=== PATIENT | male | born 1965 | race Caucasian/White ===

== ENCOUNTER 2019-01-06 06:30 | Observation (INO) | payer OTHER ==
--- NOTE | 2018-12-30 10:02 | HP ---
HISTORY AND PHYSICAL: DATE OF SURGERY: 01/06/19 DATE OF OFFICE VISIT: 12/29/18 SURGEON: Emi Fermin MD.* (DICTATED BY KATYA PEREZ) PROCEDURE: Left total knee arthroplasty. CHIEF COMPLAINT: Left knee pain. HISTORY OF PRESENT ILLNESS: Mr. Pace is a 53-year-old gentleman with end- stage osteoarthritis of the left knee. He failed conservative treatment and elected to proceed with with a total knee arthroplasty. PAST MEDICAL HISTORY: Sleep apnea, aortic aneurysm, and PVCs. PAST SURGICAL HISTORY: Left knee scope, cholecystectomy, 2 surgeries for an undescended testicle, tonsillectomy, nasal surgery, left thumb surgery, and right eye surgery. CURRENT MEDICATIONS: 1. Toprol 25 mg a day. 2. Multivitamin. ALLERGIES: No known drug allergies. FAMILY HISTORY: Diabetes. SOCIAL HISTORY: He is a 53-year-old gentleman, lives with his . He does not smoke or use drugs. Uses occasional alcohol. REVIEW OF SYSTEMS: A complete 14-point review of systems was reviewed with the patient, was all negative or noncontributory. He denies history of DVT, PE, hepatitis, HIV, or anesthesia problems. PHYSICAL EXAMINATION GENERAL: He is well developed, well nourished, in no acute distress. VITAL SIGNS: He stands 6 feet 1 inch tall, weighs 202 pounds. Blood pressure 120/78, heart rate 64. HEENT: Normocephalic, atraumatic. NECK: Supple. No palpable lymph nodes. PULMONARY: The lungs are clear to auscultation bilaterally. CARDIO: Regular rate and rhythm. Strong S1, S2. ABDOMEN: Soft, nontender, nondistended. NEUROLOGICAL: He is alert and oriented x3. MUSCULOSKELETAL: Left lower extremity: The skin is intact. There are no open wounds or abrasions. Range of motion is 10 to 120 degrees of flexion. He has a 2+ dorsalis pedis pulse. Intact sensation. His lower extremity muscle group strengths are intact at 5/5. ASSESSMENT AND PLAN: Mr. Pace is a 53-year-old gentleman with severe end- stage osteoarthritis of the left knee. He has failed conservative treatment and elected to proceed with a left total knee arthroplasty. The surgery is scheduled for 01/06/[address] Fermin discussed the risks and benefits of the surgery at today's visit and all of his questions were answered. He will follow up with Dr. Fermin 2 weeks after the surgery. KATYA PEREZ [id number]/CPS #: [id number] MTDD
[~2019-01-06 06:30] MED LIST: Acetaminophen TAB* 325 MG PO ONE; Buffered Lidocaine 1% SYRIN* 1 ML/SYRINGE INTRADERM ONE; Dexamethasone IV* 4 MG/ML 1 ML (4 MG) IV SLOW PU ONE; Famotidine IV* 10 MG/ML 2 ML (20 mg) IV ONE; Gabapentin CAP(*) 300 MG PO ONE; Lactated Ringers 1000 ML Bag* 1,000 ML IV SCH; celeCOXIB CAP* 200 MG PO ONE
[2019-01-06] MEDS ORDERED: Tranexamic Acid 1,000 MG in NS 0.9% 50 ML IV ONE (07:00)
[2019-01-06] MEDS ORDERED: fentaNYL* 50 MCG/ML 2 ML VIAL (100 MCG VIAL) ONE (07:49)
[2019-01-06] MEDS ORDERED: Midazolam* 1 MG/ML 2 ML VIAL (2 MG) ONE (07:49)
[2019-01-06] MEDS ORDERED: celeCOXIB CAP* 100 MG ONE (07:57)
[2019-01-06] MEDS ORDERED: Dexamethasone IV* 4 MG/ML 1 ML (4 MG) ONE (07:57)
[2019-01-06] MEDS ORDERED: Gabapentin CAP(*) 300 MG ONE (07:57)
[2019-01-06] MEDS ORDERED: Famotidine IV* 10 MG/ML 2 ML (20 mg) ONE (07:58)
[2019-01-06] MEDS ORDERED: Buffered Lidocaine 1% SYRIN* 1 ML/SYRINGE INTRADERM ONE (07:58)
[2019-01-06] MEDS ORDERED: Acetaminophen TAB* 325 MG ONE (07:58)
[2019-01-06] MEDS ORDERED: ceFAZolin 2 GM PREMIX in ORs 2 GM/50 ML BAG IVPB ONE (07:59)
[2019-01-06] MEDS ORDERED: Propofol* 10 MG/ML 20 ML BTL ONE ×3 (08:01→11:59)
[2019-01-06] MEDS ORDERED: Lidocaine 1%* 5 ML VIAL ONE ×2 (08:57→09:05)
[2019-01-06] MEDS ORDERED: ROPIVACAINE 5 MG/ML 30 ML BTL (0.5%) ONE (08:57)
[2019-01-06] MEDS ORDERED: fentaNYL* 50 MCG/ML 2 ML VIAL (100 MCG VIAL) IV PRN (08:58)
[2019-01-06] MEDS ORDERED: oxyCODONE/Acetamin 5/325 MG* TAB PO PRN ×2 (08:58→12:46)
[2019-01-06] MEDS ORDERED: Acetaminophen IV 1GM/100ML * 1,000 MG/100 ML VIAL IVPB ONE (08:58)
[2019-01-06] MEDS ORDERED: Ondansetron INJ* 2 MG/ML VIAL IV PRN (08:58)
[2019-01-06] MEDS ORDERED: Ketorolac INJ* 30 MG/ML 1 ML VIAL IV PRN (08:58)
[2019-01-06] MEDS ORDERED: Naloxone* 0.4 MG/ML 1 ML VIAL IV PRN (08:58)
[2019-01-06] MEDS ORDERED: HYDROmorphone INJ1* 1 MG/ML SYRINGE IV PRN (08:58)
[2019-01-06] MEDS ORDERED: Bupivacaine 0.5%* 50 ML VIAL ONE (09:24)
[2019-01-06] MEDS ORDERED: KETAMINE HCL* 50 MG/ML 10 ML VIAL ONE (09:33)
[2019-01-06] MEDS ORDERED: Bupivacaine-MPF SPINAL* 7.5 MG/ML - 2ML AMP ONE (09:52)
[2019-01-06] MEDS ORDERED: Lidocaine 2% PF * 5 ML VIAL ONE (09:52)
[2019-01-06] MEDS ORDERED: Ondansetron TAB* 4 MG PO PRN (12:46)
[2019-01-06] MEDS ORDERED: Magnesium Hydroxide LIQ* 30 ML UDC PO PRN (12:46)
[2019-01-06] MEDS ORDERED: traMADol TAB* 50 MG PO PRN (12:46)
[2019-01-06] MEDS ORDERED: Polyethylene Glycol 3350* 17 GM PACKET PO PRN (12:46)
[2019-01-06] MEDS ORDERED: diPHENhydraMINE IV* 50 MG/ML 1 ml VIAL (BENADRYL) IV PRN (12:46)
[2019-01-06] MEDS ORDERED: Bisacodyl SUPP* 10 MG SUPP PR PRN (12:46)
[2019-01-06] MEDS ORDERED: Morphine INJ* 2 MG/ML 1 ML SYRINGE (TWO MG - NEW SYRINGE VERSION) IV PRN (12:46)
[2019-01-06] MEDS ORDERED: Cyclobenzaprine TAB* 10 MG PO PRN (12:46)
--- NOTE | 2019-01-06 13:28 | PN ---
Progress Note - Progress Note Date of Service: 01/06/19 Note: in recovery, pain well controlled; able to dorsi flex/plantar flex, 2+ DP pulse and intact sensation; dressing c/d/i
[2019-01-06] MEDS: Lactated Ringers 1000 ML Bag* 1,000 ML IV SCH (14:26)
--- NOTE | 2019-01-06 15:24 | CONS ---
CC: Dr. Tirso Morin; Dr. Brigitte Garcia * CONSULTATION REPORT: DATE OF CONSULT: 01/06/19 PRIMARY CARE PROVIDER: Dr. Tirso Morin. MARINE STRUCTURAL WELDER: Dr. Brigitte Garcia. REQUESTING PHYSICIAN IN CONSULT: Dr. Emi Fermin. ATTENDING PHYSICIAN: Dr. Olivier Rodrigez (dictated by Bev Whitley NP). REASON FOR CONSULT: Co-medical management. HISTORY OF PRESENT ILLNESS: I will refer you to the history and physical by KATYA Parra, for complete details, but in short, Mr. Pace is a 53- year-old male with past medical history of aortic aneurysm and PVCs, who presents to [facility] today for an elective left total knee arthroplasty. The patient reports multiple surgeries on the left knee in the past after an injury. He did have a meniscus repair at one point. Ultimately, the pain was severe enough and he failed conservative treatment and elected to proceed with a total knee arthroplasty. The patient has a known history of frequent PVCs. He has had this for a number of years. He cannot feel his PVCs and they were reportedly incidentally found on a Holter monitor. He follows with Dr. Garcia and takes metoprolol, which appears to control his PVCs well. He additionally has a history of an aortic aneurysm, which was also incidentally found a number of years ago. At least 3 years ago, the patient was referred to a local company hazmat driver in [place] for further evaluation of his aortic aneurysm and the doctor at that point had no concerns as the aneurysm was quite small. The patient again does follow with Dr. Garcia and has yearly echocardiograms to evaluate the size of this aneurysm, though it does not appear to have changed in size. On my exam, the patient denies any pain. He reports feeling well. His is at the bedside and they offer no complaints. PAST MEDICAL HISTORY: 1. Aortic aneurysm. 2. Frequent PVCs. 3. Sleep apnea. PAST SURGICAL HISTORY: 1. Left knee arthroscopy. 2. Cholecystectomy. 3. Tonsillectomy. 4. Surgery for an undescended testicle x2. 5. Nasal surgery. 6. Left thumb surgery. 7. Right eye surgery. HOME MEDICATIONS: 1. Ibuprofen 600 to 800 mg p.o. once daily p.r.n. 2. Metoprolol succinate 25 mg p.o. at bedtime. 3. Multivitamin 1 tab p.o. daily. ALLERGIES: No known drug allergies. FAMILY HISTORY: The patient has a family history of diabetes and thyroid disease. SOCIAL HISTORY: The patient denies any tobacco or recreational drug use. He reports occasional alcohol. He lives at home with his , Meli, who will be his surrogate decision maker in the event he is unable to make his own decisions. REVIEW OF SYSTEMS: An 11-point review of systems was performed and all the pertinent positive and negative findings are in the HPI. All other systems are negative. PHYSICAL EXAM: Mr. Pace is a well-developed, well-nourished white male, sitting in bed, in no acute distress. He appears his stated age. Vital Signs: Temp 97.3, heart rate 50, respiratory rate 15, oxygen saturation 99% on room air , blood pressure 114/82. HEENT: Head is atraumatic, normocephalic. Visual maynard are grossly intact. Oral mucous membranes moist and without lesions. Neck: Full range of motion. Trachea at midline. Respiratory: Symmetrical chest expansion. No chest wall deformities. Lungs: Clear to auscultation throughout. Cardiovascular: Regular rate, bradycardic. S1, S2 present. No murmurs, rubs, or gallops. Extremities: Skin warm and smooth bilaterally. No edema. No clubbing or cyanosis. Pedal pulses 2+ bilaterally. Musculoskeletal : Full range of motion of upper extremities. Abdomen: Soft, nontender to palpation. Bowel sounds normoactive throughout. Neuro: Awake, alert, and oriented x4. Cranial nerves II through XII grossly intact. Moves all extremities. Skin: There is a surgical dressing intact to the left knee. DIAGNOSTIC STUDIES/LAB DATA: The patient had lab work on 12/29/18, which showed WBC 4.9, RBC 4.73, hemoglobin 15.6, hematocrit 45, platelets 234. INR 1.04. Sodium 140, potassium 4, chloride 103, carbon dioxide 29, BUN 9, creatinine 0.87, glucose 86. Urinalysis unremarkable. He had a chest x-ray on 12/29/18, which read as no active cardiopulmonary disease. ASSESSMENT AND PLAN: Mr. Pace is a 53-year-old male with past medical history of frequent premature ventricular contractions and an aortic aneurysm, who presents to [facility] today for an elective left total knee arthroplasty with Dr. Fermni. The patient will be admitted inpatient for: 1. Status post left total knee arthroplasty. Management per Ortho. 2. Frequent premature ventricular contractions. I did watch the patient's telemetry monitoring before entering the room and during my examination and the patient had no premature ventricular contractions during that time. It appears as though he is well controlled on his metoprolol and we will continue this. I will note that he is bradycardic, though is asymptomatic and he reports that he typically runs bradycardic, so I will add hold parameters on to the metoprolol. 3. Aortic aneurysm. It sounds as though the patient's aortic aneurysm has been stable for a number of years. He did have a recent echocardiogram on 11/14, which showed no change in size and he is established with a local company hazmat driver here in [place] as well as in [place]. I have no concerns for his aortic aneurysm at this time. 4. FEN: The patient does not require any electrolyte repletion at this time, though I will note that Cardiology does recommend to keep the patient's potassium greater than 4 and his magnesium greater than 2. I will add on a magnesium to be checked tomorrow morning with his BMP. Fluid resuscitation will be per Orthopedics and I would recommend that the patient be maintained on a heart-healthy diet without caffeine. 5. Code status: The patient will be a full code. 6. DVT prophylaxis: Per Ortho. Thank you for this consultation. We will continue to follow along distantly. TIME SPENT: Approximately 40 minutes was spent on this consultation, greater than half of that time spent [id number] with the patient and his obtaining my history, performing my physical exam, and reviewing the plan of care. This case has been reviewed with my attending, Dr. Rodrigez, who is in agreement with the plan of care. BEV WHITLEY, ADDING MACHINE MECHANIC [id number]/[facility] #: [id number] RAMON
[2019-01-06] MEDS ORDERED: oxyCODONE TAB* 5 MG TAB ONE (15:34)
[2019-01-06] MEDS: Acetaminophen TAB* 325 MG PO SCH ×2 (15:35→23:58)
[2019-01-06] MEDS: oxyCODONE TAB* 5 MG TAB PO PRN ×2 (15:35→22:05)
[2019-01-06] MEDS: Ondansetron INJ* 2 MG/ML VIAL IV PRN (16:35)
[2019-01-06] MEDS: ceFAZolin 1 GM in Dextrose (*) 1 GM/50 ML BAG IVPB SCH (17:53)
[2019-01-06] MEDS ORDERED: Metoprolol Succinate XL TAB* 25 MG PO SCH ×2 (18:00)
[2019-01-06] MEDS: Docusate CAP* 100 MG PO SCH (19:36)
[2019-01-06] MEDS: oxyCODONE/Acetamin 5/325 MG* TAB PO PRN (19:36)
[2019-01-06] MEDS: Magnesium Hydroxide LIQ* 30 ML UDC PO SCH (19:37)
[2019-01-07] MEDS: oxyCODONE/Acetamin 5/325 MG* TAB PO PRN ×4 (00:14→13:33)
[2019-01-07] MEDS: Lactated Ringers 1000 ML Bag* 1,000 ML IV SCH (00:16)
--- NOTE | 2019-01-07 01:15 | OP ---
DATE OF OPERATION: 01/06/19 - ROOM #346 DATE OF : 61 ATTENDING SURGEON: Emi Fermin MD. TV PRODUCTION ASSISTANT: KATYA Parra. Ms. Rasheed did help throughout the procedure with preparation of the leg, wound retraction, manipulation of the knee, and wound closure. ANESTHESIOLOGIST: Dr. Bartlett. ANESTHESIA: Spinal. 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 He has extensive subchondral cyst formation and loss of bone in the distal femur. 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 He has extensive subchondral cyst formation and loss of bone in the distal femur. OPERATIVE PROCEDURE: Left total knee arthroplasty with lateral femoral condylar bone grafting. Modifier for complexity of case and additional operative time. COMPLICATIONS: None. SPECIMENS: Bone and cartilage from the left knee joint sent to pathology. TOURNIQUET TIME: 64 minutes. ESTIMATED BLOOD LOSS: 200 cc. BRIEF HISTORY/INDICATIONS: Mr. Pace is a 53-year-old gentleman with more than a decade of left knee pain. He had a remote injury to the knee with prior surgery. He developed advanced posttraumatic arthritis of the knee. He failed conservative treatment with antiinflammatories, pain medications, intraarticular injections, and physical therapy. Radiographs showed severe bone -on-bone arthritis with extensive subchondral cyst formation. Patient elected to undergo left total knee arthroplasty due to continued pain and decreased quality of life. Informed consent was obtained from the patient. He understood the risks of surgery included, but were not limited to bleeding, infection, damage to nearby structures, continued pain, need for further surgery , intraoperative fracture, nerve palsy, hardware failure or loosening, anesthesia complications, knee stiffness, loss of motion, stroke, heart attack, blood clot, and . He wished to proceed. Patient and I also discussed specifically that his subchondral cyst formation could be bone grafted versus filled with cement. He understood he may need revision hardware because of the extensive bone loss. He wished to proceed. INTRAOPERATIVE FINDINGS: Intraoperatively, the patient was noted to have preop flexion contracture of 20 degrees. This was corrected to full extension. He had extensive osteophyte formation, complete loss of cartilage. He had a complete loss of ACL and both medial and lateral menisci. Patient had extensive subchondral cyst formation with bone loss in the most distal and posterior aspect of the lateral femoral condyle. This was a diameter of approximately 2 cm. Patient's lateral femoral condylar area of subchondral cyst formation and bone loss was bone grafted with autograft from the surgery as well as filled with cement for structural support. Both the patient's flexion contracture and significant bone loss added on for the time and complexity of the case of at least 45 minutes. DESCRIPTION OF PROCEDURE: Mr. Pace was identified in the preanesthesia unit. His left lower extremity was marked as the correct operative site. Informed consent was signed and placed in the chart. Patient was taken to the operating room and placed under anesthesia. A Dodge catheter was placed. Tourniquet was placed on the left thigh. Left lower extremity was prepped and draped in the usual sterile fashion. Preop time-out was made to correctly identify the patient, side, and site. Appropriate perioperative antibiotics were given within 1 hour of incision. Tourniquet was inflated and total tourniquet time for this procedure was 64 minutes. A midline incision was made, but was curved to incorporate his prior anterolateral incision. Sharp dissection down to the extensor mechanism was performed. A new 10 blade was used to make a standard medial parapatellar arthrotomy. Patella was subluxed laterally. Electrocautery was used to subperiosteally elevate soft tissue off the superomedial tibia to the midsagittal plane. Osteophytes were plentiful and were removed with a rongeur. The knee was flexed up. The knee was extremely tight. There was extensive osteophyte formation around the femur. There was no visible ACL. A drill was used to enter the distal femur. Intramedullary distal femoral cutting guide was pinned into position. Oscillating saw was used to make the distal femoral cut. Next, the external rotation guide was pinned on the distal femur and the distal femur was sized to a size 6. Size 6 multi cutting jig was placed. Oscillating saw was used to make the appropriate 4 chamfer cuts. The lateral femoral condyle subchondral cyst became evident along the most distal and posterior portion. A curette was used to remove the cystic material. The diameter was estimated at just under 2 cm. PCL was completely released. Tibia was subluxed anteriorly. Extramedullary tibial cutting guide was pinned on the proximal tibia. Oscillating saw was used to make a proximal tibial cut perpendicular to the mechanical axis of the tibia. The bone was carefully removed. The knee was brought out to full extension. Spacer block had good fit with the knee in full extension. Medial and lateral ligaments were well balanced. Flexion and extension gap was well balanced. The knee was flexed up. Lamina practice consultant was placed both medially and laterally. Any remaining meniscus was carefully removed using electrocautery. Curved osteotome was used to remove any posterior osteophytes. Tibial tray and drop jyothi were placed and once again confirmed a satisfactory tibial cut. A size 6 left femoral trial was impacted on to the distal femur. This femoral trial had excellent fit and stability. The box for the posterior stabilized implant was prepared using a reamer and box-cut osteotome. Size 6 tibial tray trial with an 11 mm insert trial was placed and the knee was taken through a range of motion. The knee had full extension to 130 degrees of flexion with satisfactory patellofemoral tracking. The patella was everted; 9 mm of patellar bone and cartilage was carefully removed. Patella was sized to a size 35. Three peg holes were drilled through the size 35 guide. A 35 trial patella was placed and the knee was taken through a range of motion. There was satisfactory patellofemoral tracking. All trials were carefully removed. Tibia was subluxed anteriorly and sized to a size 6. Proximal tibia was prepared using a size 6 keel punch. All bony cut surfaces were copiously irrigated with sterile saline and dried. Any bone graft was collected from the patient's removed bone edges. This bone graft was used to bone graft the defect in the lateral femoral condyle. Next, all final implants were cemented into place starting with the tibia, followed by the femur and last the patella. Additional cement was used to provide structural support to the remaining area of bone loss along the lateral femoral condyle. An 11 mm insert trial was placed and the knee was brought out to full extension. Tourniquet was turned down at 64 minutes. Electrocautery was used to obtain meticulous hemostasis. The knee was copiously irrigated with sterile saline. Once the cement had fully cured, the insert trial was removed. Any excess cement was removed from around the capsule and hardware. Final insert chosen was an 11 mm posterior stabilized articular insert size 5/6. This was locked into position on the tibial tray. Stability of the insert was checked and rechecked and noted to be stable. The extensor mechanism was closed using interrupted #1 Vicryl. The rest of the incision was closed in a layered fashion using 0 and 2-0 Vicryl. Skin was closed using running 3-0 nylon suture. Sterile Xeroform, 4x4s, and Webril were used to cover the incision. Kulwinder wrap and cold pack were placed over this. Patient's anesthesia was reversed without difficulty. He was taken to the PACU in stable condition. Intended weightbearing will be weightbearing as tolerated. Intended DVT prophylaxis will be Eliquis. [id number]/[facility] #: [id number] [facility]
[2019-01-07] MEDS: oxyCODONE TAB* 5 MG TAB PO PRN ×2 (02:12→06:08)
[2019-01-07] MEDS: ceFAZolin 1 GM in Dextrose (*) 1 GM/50 ML BAG IVPB SCH ×2 (02:13→09:22)
[2019-01-07] MEDS: Acetaminophen TAB* 325 MG PO SCH ×2 (04:24→11:54)
[2019-01-07 06:12] LABS: Hematocrit 39 % (42-52); Hemoglobin 13.6 g/dl (14.0-18.0); Mean Platelet Volume 7.9 fL (7.4-10.4); Platelet Count 201 10^3/ul (150-450)
[2019-01-07 06:29] LABS: BUN/Creatinine Ratio 11.4 (8-20); Calcium 8.7 mg/dL (8.6-10.3); EGFR African American 123.2 (>60); EGFR Non-African American 101.8 (>60); Magnesium 1.8 mg/dL (1.9-2.7); Potassium 3.5 mmol/L (3.5-5.0)
--- NOTE | 2019-01-07 08:53 | PN ---
Progress Note - Progress Note Date of Service: 01/07/19 SOAP: Subjective: []Pt seen at bedside. He feels well without CP, SOB, dizziness or nausea. Knee pain is well controlled. Objective: []General: NAD, well appearing LLE: Left knee dressing changed, incision CDI without erythema or edema, thigh is soft. DF/PF intact, DP2+, sensation intact to light touch distally. Calves supple and nontender without erythema, edema or palpable cords Assessment: []LTK POD 1 Dr Fermin Plan: []WBAT PT/OT Eliquis 2.5 mg po BID DC today as long as PT goals met Vital Signs Temp 98.8 F 01/07/19 08:00 Pulse 68 01/07/19 08:00 Resp 16 01/07/19 08:00 BP 108/74 01/07/19 08:00 Pulse Ox 96 01/07/19 08:00 Intake & Output 01/06/19 01/07/19 01/07/19 18:59 06:59 18:59 Intake Total 2002 1904 Output Total 1000 1150 Balance 1003 755 Weight 200 lb Intake: IV Fluids 1950 1045 LR 1950 990 cefazolin 55 IVPB 53 cefazolin 53 Oral 860 Output: Dodge 1000 1150 Other: Estimated Blood Loss 150 Comment Laboratory Last Values Hgb 13.6 g/dl (14.0-18.0) L 01/07/19 06:00 Hct 39 % (42-52) L 01/07/19 06:00 Plt Count 201 10^3/ul (150-450) 01/07/19 06:00 MPV 7.9 fL (7.4-10.4) 01/07/19 06:00 Sodium 135 mmol/L (135-145) 01/07/19 06:00 Potassium 3.5 mmol/L (3.5-5.0) 01/07/19 06:00 Chloride 101 mmol/L (101-111) 01/07/19 06:00 Carbon Dioxide 29 mmol/L (22-32) 01/07/19 06:00 Anion Gap 5 mmol/L (2-11) 01/07/19 06:00 BUN 9 mg/dL (6-24) 01/07/19 06:00 Creatinine 0.79 mg/dL (0.67-1.17) 01/07/19 06:00 Est GFR ( Amer) 123.2 (>60) 01/07/19 06:00 Est GFR (Non-Af Amer) 101.8 (>60) 01/07/19 06:00 BUN/Creatinine Ratio 11.4 (8-20) 01/07/19 06:00 Glucose 129 mg/dL (70-100) H 01/07/19 06:00 Calcium 8.7 mg/dL (8.6-10.3) 01/07/19 06:00 Magnesium 1.8 mg/dL (1.9-2.7) L 01/07/19 06:00
[2019-01-07] MEDS ORDERED: Apixaban* 2.5 MG TAB PO SCH (09:00)
[2019-01-07] MEDS: Magnesium Hydroxide LIQ* 30 ML UDC PO SCH (09:22)
[2019-01-07] MEDS: Docusate CAP* 100 MG PO SCH (09:22)
[2019-01-07 11:44] VITALS: BP 106/72
[2019-01-07] MEDS: Ondansetron INJ* 2 MG/ML VIAL IV PRN (12:51)
--- NOTE | 2019-01-08 21:19 | DS ---
DISCHARGE SUMMARY: DATE OF ADMISSION: 01/06/19 DATE OF DISCHARGE: 01/07/19 PROVIDER: Dr. Emi Fermin* (dictated by KATYA Da Silva). 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 He has extensive subchondral cyst formation and loss of bone in the distal femur. OPERATIVE PROCEDURE: Left total knee arthroplasty with lateral femoral condylar bone grafting. Modifier for complexity of case and additional operative time. HISTORY: Mr. Pace is a 53-year-old gentleman with more than a decade of left knee pain. He failed conservative management and elected to undergo a left total knee arthroplasty. HOSPITAL COURSE: The patient was admitted to [facility] on . He underwent a left total knee arthroplasty with lateral femoral condylar bone grafting, modifier for complexity of case and additional operative time without complication. On postop day 1, he was well appearing, in no acute distress. Dressing was changed. Incision was clean, dry, and intact without erythema or edema. Thigh was soft. Dorsiflexion and plantar flexion intact. DP 2+. Sensation intact to light touch distally. Vital Signs: Temperature 98.8, pulse 68, respiratory rate 16, blood pressure 108/74, and pulse ox 96%. Laboratory studies: Hemoglobin 13.6, hematocrit 39. Sodium 135, potassium 3.5. The patient was deemed to be medically and orthopedically stable for discharge home. DISCHARGE MEDICATIONS: 1. Allergy shots monthly. 2. Ibuprofen 200 mg 3 to 4 tabs once daily p.r.n. 3. Metoprolol succinate 25 mg p.o. q.p.m. 4. Centrum Silver Men's 1 daily. 5. Acetaminophen 975 mg p.o. q.8 hours p.r.n. 6. Eliquis 2.5 mg p.o. b.i.d. for 30 days. 7. Docusate 100 mg p.o. b.i.d. p.r.n. constipation. 8. Percocet 5/325 one to two tabs every 4 to 6 hours as needed for pain, max daily dose of 10. DISCHARGE INSTRUCTIONS: The patient was discharged to home on 01/07/19. He can be weightbearing as tolerated. DVT prophylaxis: Eliquis 2.5 mg every 12 hours for 1 month. Pain control: Percocet 5/325 one to two tabs every 4 to 6 hours as needed for pain, max 10 tabs per day. Follow up with Dr. Fermin in 10 to 14 days. KATYA ALVARADO [id number]/[facility] #: [id number] [facility]ITAL[facility]
== END 2019-01-07 13:30 | disposition home or self-care (01) ==
LOC: OR 06:30 → SSU 12:46 → EDSTATUS 16:45
PROVIDERS: ADMIT Orthopaedic Surgery Adult Reconstructive Orthopaedic Surgery; ATTEND Orthopaedic Surgery Adult Reconstructive Orthopaedic Surgery
DX: M17.32 Unilateral post-traumatic osteoarthritis, left knee (principal); G47.30 Sleep apnea, unspecified; I71.9 Aortic aneurysm of unspecified site, without rupture; I49.3 Ventricular premature depolarization; Z83.3 Family history of diabetes mellitus
CPT/HCPCS: 36415; 80048; 83735; 85014; 85018; 85049; 96374; 96375; 96376; A9270-GY; C1776; G0378; J0690; J1100; J2250; J2270; J2405; J2704; J2795; J3010

== ENCOUNTER 2019-07-17 08:17 | Emergency (ER) | payer OTHER ==
--- OUTSIDE RECORDS SUMMARY | 2019-07-17 08:22 | XMS REPORT | Continuity of Care Document ---
:1965 External Reference #:[id number] Author Name Regina Garcia M.D. (transmitted by agent of provider Oksana Ibarra) Address [address] [address] Care Team Providers Name Role Phone Tirso Morin MD - Family Care Team Information Clinical Evaluator [phone] Medicine Problems Active Problems Provider Date Coronary arteriosclerosis Regina Garcia M.D. Onset: 11/30/2011 Premature beats Regina Garcia M.D. Onset: 11/30/2011 Supraventricular premature beats Regina Garcia M.D. Onset: 2011 Paroxysmal ventricular tachycardia Regina Garcia M.D. Onset: 2011 Mitral valve disorder Regina Garcia M.D. Onset: 11/30/2011 Difficulty breathing Jacqueline Schulz MD Onset: 11/27/2016 Obstructive sleep apnea syndrome Bianca Mercer DNP, RN, [facility] Onset: 08/2017 Localized, primary osteoarthritis Emi Fermin M.D. Onset: 10/20/2018 Arthroplasty of knee Emi Fermin M.D. Onset: 04/03/2019 Social History Type Date Description Comments Sex Unknown Tobacco Use Start: Unknown Never Smoked Cigarettes Smoking Status Reviewed: 07/15/19 Never Smoked Cigarettes ETOH Use Drinks 3 Alcoholic Beverages Per Week Tobacco Use Start: Unknown Patient has never smoked Recreational Drug Use Denies Drug Use Exercise Type/Frequency Exercises regularly Allergies, Adverse Reactions, Alerts Active Allergies Reaction Severity Comments Date NKDA 02/19/2018 Dust Mites 12/13/2015 Ragweed 12/13/2015 Pollen 12/13/2015 Inactive Allergies NKDA 09/19/2006 Medications Active Medications SIG Qnty Indications Ordering Date Provider Amoxicillin take 4 pills, 2 g 4caps Emi Fermin, 04/24/2019 500mg 1 hour before M.D. Capsules dental or gi procedure Allergy Shots monthly in the [facility]. 09/19/2006 winter, then Topher Garcia weekly or every other week during spring/summer/fall Toprol XL 1 by mouth every 90tabs [facility]. 09/03/2006 25mg Tablets day Topher Garcia ER 24HR Multivitamin Adult 1 tablet by mouth Unknown daily Ibuprofen 2 tabs by mouth Unknown 200mg every 6 hours as Capsules needed History Medications Tramadol HCL 1 tab every 6 60tabs Z96.652 Emi Fermin, 01/19/2019 - 50mg hours as needed M.D. 04/02/2019 Tablets for pain Keflex 1 by mouth 4 28caps Z96.652 Emi Fermin, 01/19/2019 - 500mg times a day for M.D. 02/19/2019 Capsules 7 days Immunizations CPT Code Status Date Vaccine Lot # [id number] Given 08/30/2016 Influenza Virus Vaccine, Quadrivalent, Split, Preservative Free Vital Signs Date Vital Result Comment 07/15/2019 3:33pm Height 73 inches 6'1" Weight 183.25 lb without shoes Heart Rate 62 /min radial, regular BP Systolic Sitting 114 mmHg LA, reg cuff BP Diastolic Sitting 82 mmHg LA, reg cuff BP Systolic Standing 114 mmHg LA, reg cuff BP Diastolic Standing 84 mmHg LA, reg cuff BMI (Body Mass Index) 24.2 kg/m2 Ejection Fraction 55-60% Echocardiogram 11/14/2018 04/03/2019 8:12am Height 73 inches 6'1" Weight 188.00 lb BP Systolic 117 mmHg BP Diastolic 74 mmHg Respiratory Rate 16 /min Pain Level 0 BMI (Body Mass Index) 24.8 kg/m2 Results Description No Information Available Procedures Date Code Description Status 07/15/2019 27806 EKG Tracing & Interpretation Completed Medical Devices Description No Information Available Encounters Description No Information Available Assessments Date Code Description Provider 07/15/2019 I77.819 Aortic ectasia, unspecified site Regina Garcia M.D. 07/15/2019 I49.1 Atrial premature depolarization Regina Garcia M.D. 04/03/2019 M25.462 Effusion, left knee Emi Fermin M.D. 04/03/2019 Z96.652 Presence of left artificial knee joint Emi Fermin M.D. 04/03/2019 Z47.1 Aftercare following joint replacement Emi Fermin M.D. surgery 02/20/2019 Z47.1 Aftercare following joint replacement Emi Fermin M.D. surgery 02/20/2019 Z96.652 Presence of left artificial knee joint Emi Fermin M.D. 02/20/2019 M25.562 Pain in left knee Emi Fermin M.D. 02/02/2019 Z47.1 Aftercare following joint replacement Emi Fermin M.D. surgery 02/02/2019 Z96.652 Presence of left artificial knee joint Emi Fermin M.D. 02/02/2019 M25.562 Pain in left knee Emi Fermin M.D. 01/19/2019 Z47.1 Aftercare following joint replacement Emi Fermin M.D. surgery 01/19/2019 Z96.652 Presence of left artificial knee joint Emi Fermin M.D. 01/19/2019 M25.562 Pain in left knee Emi Fermin M.D. Plan of Treatment Future Appointment(s):08/07/2019 9:30 am - Bianca Mercer DNP, RN, [employer] [facility]07/15/2019 - Regina Garcia M.D.I77.819 Aortic ectasia, unspecified siteNew Orders:Echocardiogram, Ordered: 07/15/19Follow up:9 months ovI49.1 Atrial premature depolarization Functional Status Description No Information Available Mental Status Description No Information Available Referrals Description No Information Available
[2019-07-17 08:23] VITALS: BP 108/70
[2019-07-17] MEDS ORDERED: predniSONE TAB* 20 MG PO ONE (08:39)
--- NOTE | 2019-07-17 08:41 | UC ---
Skin Complaint HPI - HPI Summary HPI Summary: 53 yo male s/p sting to left hand by ground wasp yesterday now hand red/swollen and itchy no resp issues - History of Current Complaint Chief Complaint: UCAllergicReaction Time Seen by Provider: 07/17/19 08:34 Stated Complaint: BEE STING Hx Obtained From: Patient Onset/Duration: Sudden Onset Skin Exposure Onset/Duration: Hours Ago Timing: Constant Onset Severity: Mild Current Severity: Mild Pain Intensity: 2 Pain Scale Used: 0-10 Numeric Location: Discrete, Hand (Left) Character: Swelling, Pruritus, Pain, Redness, Raised Aggravating Factor(s): Nothing Alleviating Factor(s): Nothing Associated Signs & Symptoms: Positive: Tenderness. Negative: Nausea, Vomiting, Numbness, Thirst, Diaphoresis, Weakness, Pallor, Shivering, Difficulty Breathing , Fever, Chills, Cough, Wheezing, Chest Pain, Hoarseness, Throat Tightening, Abdominal Pain, Lightheadedness, Syncope, Drainage, Bruising, Red Streaks, Joint Swelling - Allergy/Home Medications Allergies/Adverse Reactions: Allergies Allergy/AdvReac Type Severity Reaction Status Date / Time ENVIRONMENTAL-DUST/POLLEN Allergy Unknown Uncoded 07/17/19 08:23 Reaction Details PMH/Surg Hx/FS Hx/Imm Hx Previously Healthy: Yes Cardiovascular History: Hypertension - Surgical History Surgical History: Yes Surgery Procedure, Year, and Place: Lt KNEE -CARTILAGE. Lt THUMB. Rt EYE - REPAIR FROM INJURY RELATED TO SCREWDRIVER -LENS WAS SHATTERED ALSO IRIS WAS DAMAGED - ct done 2003 - no metal noted- CLEARED BY DR CASTILLO - Family History Known Family History: Positive: Hypertension, Non-Contributory - Social History Alcohol Use: Occasionally Alcohol Amount: 2 BEERS PER WEEK Substance Use Type: None Smoking Status (MU): Never Smoked Tobacco Have You Smoked in the Last Year: No - Immunization History Most Recent Influenza Vaccination: 2018 Most Recent Pneumonia Vaccination: HAS NOT HAD Review of Systems All Other Systems Reviewed And Are Negative: Yes Constitutional: Positive: Negative Skin: Positive: Negative Eyes: Positive: Negative ENT: Positive: Negative Respiratory: Positive: Negative Cardiovascular: Positive: Negative Gastrointestinal: Positive: Negative Genitourinary: Positive: Negative Motor: Positive: Negative Neurovascular: Positive: Negative Musculoskeletal: Positive: Edema - left dorsal hand edema Neurological: Positive: Negative Psychological: Positive: Negative Physical Exam Triage Information Reviewed: Yes Appearance: Well-Appearing, No Pain Distress, Well-Nourished Vital Signs: Initial Vital Signs Temp 96.6 F 07/17/19 08:21 Pulse 49 07/17/19 08:21 Resp 18 07/17/19 08:21 BP 108/70 07/17/19 08:21 Pulse Ox 100 07/17/19 08:21 Vital Signs Reviewed: Yes Eyes: Positive: Conjunctiva Clear ENT: Positive: Normal ENT inspection Neck exam: Normal Neck: Positive: Supple Respiratory: Positive: Lungs clear, Normal breath sounds, No respiratory distress, No accessory muscle use Cardiovascular: Positive: RRR Musculoskeletal: Positive: ROM Intact, Other: - left hand - dorsal hand edema/ red, no retained stinger Neurological: Positive: Alert Psychological Exam: Normal Skin Exam: Other - see extr discription Course/Dx - Diagnoses Provider Diagnosis: Local reaction to insect sting Discharge ED - Sign-Out/Discharge Documenting (check all that apply): Patient Departure All imaging exams completed and their final reports reviewed: No Studies - Discharge Plan Condition: Stable Disposition: HOME Patient Education Materials: Insect Bite or Sting (ED) Referrals: Tirso Morin MD [Primary Care Provider] - 3 Days (if not better) Additional Instructions: elevate ice non sedating antihistamine - Billing Disposition and Condition Condition: STABLE Disposition: Home
== END 2019-07-17 08:50 | disposition home or self-care (01) ==
LOC: UCEAST 08:17
DX: T63.441A Toxic effect of venom of bees, accidental (unintentional), initial encounter (principal); Y92.9 Unspecified place or not applicable; I10 Essential (primary) hypertension
CPT/HCPCS: 99212; G0463; J7512